=== PATIENT | male | born 1960 | race Caucasian/White ===

== ENCOUNTER 2023-08-11 10:01 | Emergency (ER) | payer MEDICARE, SELFPAY ==
[2023-08-11 10:04] VITALS: BP 111/64; PULSE 54; RESP 18; TEMP 35.7; O2SAT 98; BMI 32.2
--- NOTE | 2023-08-11 10:52 | CRLHL7_ITS ---
For Patients: As a result of the Cures Act, medical imaging exams and procedure reports are released immediately into your electronic medical record. You may view this report before your referring provider. If you have questions, please contact your health care provider. Indication: Rule out foreign body Technique: Two views of the left tibia/fibula Comparison: None Findings/impression : No acute fracture or malalignment. Likely sequela of remote, healed distal tibial diaphyseal fracture. No knee joint effusion. Patient is status post unicompartmental knee arthroplasty in the medial compartment. There is a linear hyperdensity seen in the knee joint immediately anterior to the arthroplasty and just inferior to the patella measuring approximately 1.1 centimeters, indeterminate, may represent a foreign body or less likely an osseous fragment. No suspicious osseous lesions. Dictated by Walt Ro MD @ 08/18/2023 11:36:44 AM (Electronically Signed)
[2023-08-11] MEDS: cephALEXin 500 MG CAPSULE PO (10:56)
--- NOTE | 2023-08-11 10:56 | ED_ITS ---
HPI - General Adult General Chief complaint: Laceration/Wound Stated complaint: Legs laceration Time Seen by Provider: 08/11/23 10:12 History of Present Illness HPI narrative: [age] year white male who is up-to-date on tetanus, presents with a picket fence wooden structure that cut his left inner leg. He has a long scrape, but he has an open wound of about 5 cm. Just above his right medial ankle. The patient has been ambulatory, he is generally healthy, he does take testosterone as hypertension. He has had a partial knee replacement on the left as well. He is last tetanus was 4 years ago. He denies other injuries. He is works as a [employer]. Related Data Home Medications ?Medication ?Instructions ?Recorded ?Confirmed lisinopril 20 mg tablet 20 mg PO DAILY 08/11/23 08/11/23 metoprolol succinate 50 mg 50 mg PO DAILY 08/11/23 08/11/23 tablet,extended release 24 hr testosterone cypionate 200 mg/mL IM 08/11/23 intramuscular oil Previous Rx's ?Medication ?Instructions ?Recorded cephalexin 500 mg capsule 500 mg feeding tube QID 5 days #20 08/11/23 caps Allergies Allergy/AdvReac Type Severity Reaction Status Date / Time No Known Drug Allergies Allergy Verified 08/11/23 10:11 Review of Systems Status of ROS: Reports: 6 or more systems reviewed and unremarkable except as noted in History and below Exam Narrative: Exam Narrative: Objective: Patient's vital signs are within normal limits His left leg shows a long abrasion along the calf but about a 5 cm open wound that is down through the fat. There does not appear to be arterial bleeding His function of his ankle and foot are normal he has got flexion extension normal sensation. Careful palpation of the wound shows no foreign body palpable. I do not visualize any foreign body. Const: Vital Signs, click to edit/add: Vital Signs - 24 hr 08/11/23 10:04 08/11/23 11:28 Temperature 96.2 F L Pulse Rate [Right Pulse Oximeter] 54 L 71 Respiratory Rate 18 Blood Pressure [Ri ght Upper Arm] 111/64 Pulse Oximetry 98 Oxygen Delivery Me thod Room Air Course Vital Signs Vital signs: Initial Vital Signs Temperature 96.2 F L 08/11/23 10:04 Temperature Source Temporal Artery Scan 08/11/23 10:04 Pulse Rate 54 L 08/11/23 10:04 Pulse Rhythm Regular 08/11/23 10:04 Pulse Strength 3+ Normal 08/11/23 10:04 Respiratory Rate 18 08/11/23 10:04 Blood Pressure 111/64 08/11/23 10:04 Blood Pressure Mean 79 08/11/23 10:04 Blood Pressure Position Sitting 08/11/23 10:04 Pulse Oximetry 98 08/11/23 10:04 Oxygen Delivery Method Room Air 08/11/23 10:04 Vital Signs Temperature 96.2 F L 08/11/23 10:04 Pulse Rate 54 L 08/11/23 10:04 Respiratory Rate 18 08/11/23 10:04 Blood Pressure 111/64 08/11/23 10:04 Pulse Oximetry 98 08/11/23 10:04 Oxygen Delivery Method Room Air 08/11/23 10:04 Temperature 96.2 F L 08/11/23 10:04 Pulse Rate 71 08/11/23 11:28 Respiratory Rate 18 08/11/23 10:04 Blood Pressure 111/64 08/11/23 10:04 Pulse Oximetry 98 08/11/23 10:04 Oxygen Delivery Method Room Air 08/11/23 10:04 Medications Administered Medications: Discontinued Medications Generic Name Dose Route Start Last Admin Trade Name Freq PRN Reason Stop Dose Admin Cephalexin HCl 500 mg 08/11/23 10:52 08/11/23 10:56 Cephalexin 500 Mg Capsule PO 08/11/23 10:53 500 mg ONCE ONE Administration Medical Decision Making MDM Narrative Medical decision making narrative: After sterile irrigation, the wound was injected with 1% xylocaine with epinephrine for anesthesia, the patient tolerated this well Careful inspection of the wound edges and wound show no obvious foreign body. I palpated with a finger into the entirety of the wound as well and I do not feel any foreign body. Procedure after sterile scrub as mention, 3-0 simple opted Ethilon sutures were placed and skin reapproximated to the laceration component. Good skin edge approximation good hemostasis. Patient tolerated this very well. I think given the potential for foreign body will get an x-ray of his leg. Will have him follow-up was in 7 days for suture removal, keep the covering on for 24 hours then he may soak or bathe off, and cover with a bandage. Light activity recommended. Return if redness or infection. Will put him on Keflex 500 q.i.d. x5 days. Will start an antibiotic dose in the ER. X-ray by my read of the leg shows no foreign body. Discharge Plan Discharge Clinical Impression: Laceration Patient Disposition: Home, Self-Care Condition: Improved Additional Instructions: Suture removal 7 days with primary care, Keflex 500 q.i.d. x5 days, Tylenol Advil as needed, keep dry for 24 hours and keep the dressing on then may cover with a simple bandage in shower and bathe as needed. Light activity recommended till sutures removed with the leg. Return if problems or concerns, watch for infection or redness. Activity Level: Light activity Discharge Diet: Regular Prescriptions: New cephalexin 500 mg capsule 500 mg feeding tube QID 5 Days Qty: 20 0RF No Action metoprolol succinate 50 mg tablet extended release 24 hr 50 mg PO DAILY lisinopril 20 mg tablet 20 mg PO DAILY testosterone cypionate 200 mg/mL oil IM Follow Up/Referrals: Jm Escalante MD [Primary Care Provider] - Stand Alone Forms: [employer] Info Instructions
[2023-08-11 11:28] VITALS: PULSE 71
== END 2023-08-11 11:32 | disposition home or self-care (01) ==
LOC: ED 11:00
PROVIDERS: Emergency Provider Family Medicine; PCP Family Medicine
DX: S81.812A Laceration without foreign body, left lower leg, initial encounter (principal); W26.9XXA Contact with unspecified sharp object(s), initial encounter
CPT/HCPCS: 12001; 73590; 99283; 99284; A9270